=== PATIENT | male | born 1945 | race Caucasian/White ===

== ENCOUNTER 2016-07-23 21:11 | Outpatient (CLI) | payer MEDICARE, OTHER ==
[~2016-07-23 21:11] MED LIST: HYDR-3454 PO; PANT40TA2 PO
== END 2016-07-24 06:01 | disposition home or self-care (01) ==
LOC: SLEEP 21:11
PROVIDERS: ATTEND Nurse Practitioner Family
DX: G47.10 Hypersomnia, unspecified (principal); R06.83 Snoring
CPT/HCPCS: 95810

== ENCOUNTER 2020-10-09 05:28 | Outpatient (RCR) | payer MEDICARE, OTHER ==
[~2020-10-09] VITALS: Ht 175.3 cm; Wt 96.2 kg
[~2020-10-09 05:28] MED LIST changes: -HYDR-3454 PO; +HYDR-3455 PO; +METF-397 PO
== END 2020-10-09 09:18 | disposition home or self-care (01) ==
LOC: PREOP 05:28
PROVIDERS: ATTEND Internal Medicine
DX: Z01.812 Encounter for preprocedural laboratory examination (principal); Z12.11 Encounter for screening for malignant neoplasm of colon; K21.9 Gastro-esophageal reflux disease without esophagitis; Z20.822 Contact with and (suspected) exposure to COVID-19
CPT/HCPCS: 87635

== ENCOUNTER 2020-10-11 07:05 | Day surgery (SDC) | payer MEDICARE, OTHER ==
--- NOTE | 2020-10-01 11:44 | HISTORY AND PHYSICAL ---
DATE OF SERVICE: COLONOSCOPY HISTORY AND PHYSICAL DATE OF ADMISSION: . HISTORY OF PRESENT ILLNESS: The patient is a 75-year-old white male seen for followup of type 2 diabetes mellitus, either or not, previously had colonoscopy done over 10 years, so he is being set up for screening colonoscopy. He states that he has been taking metformin. He has had a little bit of diarrhea with it. I was concerned about this. He had noted no blood and had no diarrhea, previous. He has had no accidents and is not limiting him socially to a significant extent per his report. He is still not doing as well as he could with portion control or regular physical activity, but doing well otherwise. He has had no chest pain or shortness of breath. PHYSICAL EXAMINATION: GENERAL: Revealed a white male, who appeared to be in no acute distress. VITAL SIGNS: Blood pressure 130/80, weight was up 2.6 pounds to 216.6. HEENT: Unremarkable. Sclerae nonicteric. CHEST: Clear. CARDIOVASCULAR: Reveals a regular rate and rhythm without murmur, S3 or S4. ABDOMEN: Soft, supple without mass, organomegaly or tenderness. EXTREMITIES: Reveal no cyanosis, clubbing or edema. LABORATORY DATA: Blood tests were reviewed with the patient. His A1c level is down from 8.2% to 7.3% and glucose was down from a fasting level of 226 three months ago to 165. ASSESSMENT AND PLAN: 1. Improving blood sugar control, but not yet ideal. Discussed the importance of portion controlling especially carbohydrates as well as increasing physical activity. As the patient is having some diarrhea, we will not increase metformin as of yet, but discussed this on return and see what the patient could do with further lifestyle management considering significant improvement over the past three months. 2. The patient is set up for screening colonoscopy. Prep instructions were given and questions were answered. Follow up in four months with repeat BMP and an A1c level. Job ID: [id number] DocumentID: [id number] Dictated Date: 10/01/2020 10:42:07 Manager Food Safety Date: 10/01/2020 11:43:48 Dictated By: LUDA LONDONO MD
[2020-10-11] VITALS (9 sets, daily range): BP systolic 118–152; BP diastolic 72–97
[~2020-10-11] VITALS: Ht 173.3 cm; Wt 96.2 kg
[2020-10-11] MEDS ORDERED: LACTATED RINGERS 1,000 ML IV ONE (07:14)
[2020-10-11] MEDS ORDERED: LACTATED RINGERS 1,000 ML IV STA (07:19)
[2020-10-11] MEDS ORDERED: LIDOCAINE JELLY 2% 6 ML SYRINGE MM PRN (07:30)
[2020-10-11] MEDS ORDERED: proPOfol 200 MG/20 ML (DIPRIVAN) VIAL IV ONE ×2 (07:44→08:05)
[2020-10-11] MEDS ORDERED: MIDAZOLAM 2 MG/2 ML (VERSED) VIAL ONE (07:44)
[2020-10-11] MEDS ORDERED: LIDOCAINE JELLY 2% 6 ML SYRINGE ONE (07:49)
[2020-10-11] MEDS ORDERED: HURRICAINE EXT TUBE (BENZOCAINE) ONE (07:49)
--- NOTE | 2020-10-11 07:53 | Pre-Op Note & Conscious Sedat ---
Pre-Operative Progress Note H&P Reviewed The H&P was reviewed, patient examined and no changes noted. Date H&P Reviewed: Oct 11, 2020 Time H&P Reviewed: 07:53 Conscious Sedation Pre-Proced ASA Score 2 For ASA 3 and 4: Consider anesthesia and medical clearance. Also, for patients with a history of failed moderate sedation consider anesthesia. Airway Lungs Heart ASA score ASA 1: a normal healthy patient ASA 2: a patient with a mild systemic disease (mid diabetes, controlled hypertension, obesity ASA 3: a patient with a severe systemic disease that limits activity (angina, COPD, prior Myocardial infarction) ASA 4: a patient with an incapacitating disease that is a constant threat to life (CHF, renal failure) ASA 5: a moribund patient not expected to survive 24 hrs. (ruptured aneurysm) ASA 6: a declared brain- patient whose organs are being harvested. For emergent operations, add the letter E after the classification Mallampati Classification Grade 2 Sedation Plan Analgesia, Amnesia, Plan communicated to team members, Discussed options with patient/fam, Discussed risks with patient/fam The patient is an appropriate candidate to undergo the planned procedure, sedation, and anesthesia. The patient immediately re-assessed prior to indication. LUDA LONDONO MD Oct 11, 2020 07:53
[2020-10-11] MEDS ORDERED: HURRICAINE EXT TUBE (BENZOCAINE) XX ONE (08:30)
--- NOTE | 2020-10-11 10:59 | Anesthesia-General Post-Op ---
MAC Patient Condition Mental Status/LOC: Same as Preop Cardiovascular: Satisfactory Nausea/Vomiting: Absent Respiratory: Satisfactory Pain: Controlled Complications: Absent Post Op Complications Complications None Follow Up Care/Instructions Patient Instructions None needed. Anesthesiology Discharge Order Discharge Order Patient is doing well, no complaints, stable vital signs, no apparent adverse anesthesia problems. No complications reported per nursing. ERIC BAI CRNA Oct 11, 2020 10:59
--- NOTE | 2020-10-11 17:35 | OPERATIVE REPORT ---
DATE OF SERVICE: PANENDOSCOPY SUMMARY PRIMARY CARE PROVIDER: Luda Londono MD EGD was performed due to increasing reflux symptoms over the past several months. The patient was placed in the left lateral decubitus position. The endoscope was inserted in the oral cavity and under direct visualization, esophagus was intubated. Endoscope was passed down the esophagus through the stomach and second portion of the duodenum. Careful inspection was made as the endoscope was withdrawn. FINDINGS: The proximal and mid esophagus were unremarkable. Several shallow peptic-appearing ulcerations were noted in the distal esophagus involving no more than 20% of the circumference of the GE junction, the largest one extending about a 0.5 cm proximally, compatible with LA grade A erosive esophagitis. A small sliding hiatal hernia was noted. No evidence for stricture formation and no evidence for Frazier's to gross inspection was noted. Biopsies were obtained and submitted for histopathology. The cardia, fundus, antrum, pylorus, pyloric channel, duodenal bulb and second portion of duodenum were unremarkable. ASSESSMENT: As noted above, LA grade A erosive esophagitis changes were present without evidence for Frazier's. A small sliding hiatal hernia is noted. We discussed the importance of lifestyle change for this as well as his diabetes, portion control, increased physical activity, not eating or drinking 3 or 4 hours before bedtime. Continuing p.r.n. antacid therapy with further recommendations pending biopsy results. We then proceeded with colonoscopy. Prior to undergoing colonoscopy, digital rectal evaluation was performed. Prostate is mildly enlarged, anodular and nontender to digital inspection. No other abnormalities were noted on digital inspection of anal canal or distal rectal vault. The colonoscope was then inserted into the rectum and under direct visualization advanced to the cecum. The cecum was identified by identification of ileocecal valve and a cecal strap. Quality of prep was fair. FINDINGS: There were no evidence for internal or external hemorrhoids. Present in the distal rectum was a diminutive 4 mm sessile polyp, it was photographed and biopsied and ablated with no subsequent blood loss. The remainder of the rectum was unremarkable. Several small sigmoid diverticulum were present. No other sigmoid colonic abnormalities were appreciated. A diminutive polyp was noted in the distal descending colon. It was photographed and biopsied and ablated. Two adjacent polyps were noted in the proximal transverse colon, which were biopsied and ablated, scarp the two adjacent, but down 2 polyps were noted in the transverse colon, one in the proximal and other in the distal, which were both biopsied, ablated after photographic documentation. No blood loss was noted. The splenic flexure, ascending colon and cecum was unremarkable. ASSESSMENT: Four small polyps were removed today as noted above. Several small sigmoid diverticula were present without evidence for diverticulitis. Digital evaluation of the prostate was compatible with mild BPH. We will await histopathology report before making recommendation for future surveillance colonoscopy. Job ID: [id number] DocumentID: [id number] Dictated Date: 10/11/2020 09:35:33 Oil Winterizer Date: 10/11/2020 17:35:08 Dictated By: LUDA LONDONO MD
== END 2020-10-11 09:40 | disposition home or self-care (01) ==
LOC: ENDO 07:05
PROVIDERS: ATTEND Internal Medicine
DX: D12.3 Benign neoplasm of transverse colon (principal); D12.4 Benign neoplasm of descending colon; K62.1 Rectal polyp; K21.00 Gastro-esophageal reflux disease with esophagitis, without bleeding; K22.70 Barrett's esophagus without dysplasia; K44.9 Diaphragmatic hernia without obstruction or gangrene; K57.30 Diverticulosis of large intestine without perforation or abscess without bleeding; E11.9 Type 2 diabetes mellitus without complications; Z79.84 Long term (current) use of oral hypoglycemic drugs
CPT/HCPCS: 82947; 88305

== ENCOUNTER 2020-12-25 05:38 | Outpatient (CLI) | payer MEDICARE, OTHER ==
[~2020-12-25] VITALS: Ht 175.3 cm; Wt 96.6 kg
[2020-12-25] MEDS ORDERED: METF-845 PO (16:26)
== END 2020-12-25 16:30 | disposition home or self-care (01) ==
LOC: PREOP 05:38
PROVIDERS: ATTEND Surgery
DX: Z01.818 Encounter for other preprocedural examination (principal)

== ENCOUNTER 2021-01-01 07:11 | Day surgery (SDC) | payer MEDICARE, OTHER ==
[~2021-01-01] VITALS: Ht 175 cm; Wt 96.6 kg
[2021-01-01] VITALS (11 sets, daily range): BP systolic 88–149; BP diastolic 44–98
[~2021-01-01 07:11] MED LIST changes: +METF-845 PO
[2021-01-01] MEDS ORDERED: LIDOCAINE/EPI 1%-1:100,000 (XYLOCAINE) 20ML ONE (07:17)
[2021-01-01] MEDS ORDERED: CLINDAMYCIN 600 MG/50 ML IVPB 50 ML IV ONE (07:30)
[2021-01-01 07:42] LABS: BASOPHILS % (AUTO) 0 % (0-10); EOSINOPHILS # (AUTO) 0.2 10^3/uL (0.0-0.3); EOSINOPHILS % (AUTO) 3 % (0-10); HEMATOCRIT 46 % (40-54); HEMOGLOBIN 15.5 g/dL (13.3-17.7); LYMPHOCYTES # (AUTO) 1.4 10^3/uL (1.0-4.0); LYMPHOCYTES % (AUTO) 27 % (12-44); MEAN CORPUSCULAR HEMOGLOBIN 31 pg (25-34); MEAN CORPUSCULAR HGB CONC 34 g/dL (32-36); MEAN CORPUSCULAR VOLUME 91 fL (80-99); MEAN PLATELET VOLUME 10.6 fL (9.0-12.2); MONOCYTES # (AUTO) 0.6 10^3/uL (0.0-1.0); MONOCYTES % (AUTO) 11 % (0-12); NEUTROPHILS # (AUTO) 3.1 10^3/uL (1.8-7.8); NEUTROPHILS % (AUTO) 59 % (42-75); PLATELET COUNT 216 10^3/uL (130-400); WHITE BLOOD COUNT 5.2 10^3/uL (4.3-11.0)
[2021-01-01] MEDS: LACTATED RINGERS 1,000 ML IV PRN ×2 (07:49→10:47)
--- NOTE | 2021-01-01 08:15 | Progress Note-Pre Operative ---
Pre-Operative Progress Note H&P Reviewed The H&P was reviewed, patient examined and no changes noted. Time Seen by Provider: 08:10 Date H&P Reviewed: Jan 01, 2021 Time H&P Reviewed: 08:10 Pre-Operative Diagnosis: Left inguinal hernia, site marked ALANNAH DEL ROSARIO DO Jan 01, 2021 08:15
[2021-01-01] MEDS ORDERED: MIDAZOLAM 2 MG/2 ML (VERSED) VIAL ONE (08:24)
[2021-01-01] MEDS ORDERED: fentaNYL INJ 100 MCG/2 ML AMP ONE ×2 (08:24→10:46)
[2021-01-01] MEDS ORDERED: GLYCOPYRROLATE 0.2 MG/ML (ROBINUL) 2 ML VIAL ONE (09:33)
[2021-01-01] MEDS ORDERED: ROCURONIUM 10 MG/ML 5 ML SYRINGE IV ONE ×2 (09:33→10:21)
[2021-01-01] MEDS ORDERED: PHENYLEPHRINE 100 MCG/ML 10 ML (ANESTHESIA) SYR ONE (09:33)
[2021-01-01] MEDS ORDERED: LIDOCAINE PF 2% 5 ML (XYLOCAINE) VIAL ONE (09:33)
[2021-01-01] MEDS ORDERED: ONDANSETRON 4 MG/2 ML (SDV) Z0FRAN ONE (09:33)
[2021-01-01] MEDS ORDERED: proPOfol 200 MG/20 ML (DIPRIVAN) VIAL IV ONE (09:33)
[2021-01-01] MEDS ORDERED: NEOSTIGMINE 3 MG/3 ML VIAL ONE (09:33)
[2021-01-01] MEDS ORDERED: SEVOFLURANE (ULTANE) 15 ML INHAL SOLN ONE (10:49)
--- NOTE | 2021-01-01 10:59 | Progress Note-Post Operative ---
Post-Operative Progess Note Surgeon (s)/Rail Equipment Operator (s) Surgeon ALANNAH DEL ROSARIO DO Rail Equipment Operator: Adan Pre-Operative Diagnosis Left inguinal hernia, site marked Post-Operative Diagnosis Incarcerated Left inguinal hernia Procedure & Operative Findings Date of Procedure 01/01/21 Procedure Performed/Findings Laparoscopic Left Inguinal Herniarraphy with mesh placement - Robotic assisted After informed consent was obtained, the patient was brought to the operating room and placed on the operating table in a supine position. He was sterilely prepped and draped in a normal fashion. Local lidocaine was used to infiltrate the skin above the umbilicus. I made an incision with #11 blade, carried down to the skin into subcutaneous tissue and then deepened down the subcutaneous tissue with Bovie electrocautery down to the fascia. Fascia was incised with Bovie electrocautery and bluntly entered the abdomen, swept a finger around, placed 0 Vicryl [id number] suture and placed limited trocar port under direct visualization. Created pneumoperitoneum, able to visualize the hernia and took a picture of this and then placed two 8 mm ports about 10 cm on either side of the midline port using a local lidocaine, 11 blade for stab incision and then advanced the robotic port under direct visualization. Once this was in, I then placed the patient in Trendelenburg and then placed the working instruments, the fenestrated bipolar and the scissors. Looked on the right side and saw no signs of inguinal hernia. On the left there was a large indirect defect with omentum and bowel in the the hernia defect. I had to first remove the incarcerated bowel by pulling on the insided and having Dr. Arellano push from the outside. I used cautery to take down some of the adhesions and then could see directly into large defect and pictures were taken. Next, I came across the peritoneum approximately 8 cm away from the hernia defect, going across laterally starting lateral about 17cm and cutting toward the median umbilical ligament. I then carefully dissected the visceral peritoneum away and down and then in the midline, went through the parietal side and dissected down to the pubic tubercle, dissecting this down carefully pushing the peritoneum away, I was able to then visualize the pubic tubercle and Kai's ligament. I went 2 cm posterior and at this point, we then had a critical view of the dissection, able to dissect 2 cm across the midline to the right side, 2 cm posterior to the Kai's ligament, able to then parietalize the vas deferens and spermatic vessels right at the groove between Kai's and iliac vein and able to dissect, make sure there was no peritoneum between those two, able to see the indirect hernia space, took a picture of this, looked at the femoral space (no hernia seen). Then I carefully teased out the hernia sac and could visualize the indirect hernia space. Next I looked on the cord and cord structures. There was a small cord lipoma that I was able to reduce. I could clearly see the inguinal canal and the indirect space. Next I carried the posterior lateral dissection all the way out and then placed a 12 x 17 Midwieght Bard 3DMax mesh. It laid in nicely, covered the hernia defect and the rest of the area. It was above the peritoneum, sutured it at the pubic tubercle with a 3-0 Vicryl suture and tied this off. This appeared to lay in very nicely. I then brought down the pneumoperitoneum to about 8 mmHg and then started closing the peritoneum. Started medially and used a 2-0 V-lock barbed suture to start a running stitch to close the peritoneum. This was closed nicely, took a picture of the closure at this point, then removed both needles had switched to a suture fuel truck driver from the scissors. The patient was then placed back supine, removed all ports under direct visualization, allowed pneumoperitoneum to escape and then closed the supraumbilical incision, closing the fascia with 0 Vicryl suture previously placed. Copiously irrigated all incisions and then closed the two small 8 mm incisions with two interrupted 4-0 undyed Monocryl subcuticular stitches and closed the supraumbilical incision with three interrupted undyed Monocryl subcuticular stitch. Area was cleaned and dried. Dermabond was placed. The patient tolerated the procedure. The sponge, instrument and needle counts were correct at the end of the case. Dr. Arellano assisted during this surgery by making incisions, closing incisions, helping to identify anatomy and passing/retrieving suture and needles. Anesthesia Type GET Estimated Blood Loss Estimated blood loss (mL): less than 5ml Specimens/Packing Specimens Removed none ALANNAH DEL ROSARIO DO Jan 01, 2021 10:59
[2021-01-01] MEDS ORDERED: ACHD5005 PO (11:02)
--- NOTE | 2021-01-01 11:03 | Discharge Inst-Surgical ---
Discharge Inst-Surgical Depart Medication/Instructions New, Converted or Re-Newed RX: Transmitted to Pharmacy Patient Instructions Follow up Appt: Make appointment for 1 week. [phone] Instructions: No lifting greater than 20 pounds. No strenuous activity. May shower in 24 hours, no tub bath or soaking. Use incentive spirometer at home as directed. No Smoking Skin/Wound Care: May remove bandages in am. You need to leave the Dermabond on incision it will fall off on it's own. Symptoms to Report: Appetite Changes, Extremity Discoloration, Numbness/Tingling, Swelling Increased, Bleeding Excessive, Eyesight Changes, Pain Increased, Urine Color Change, Constipation(Persistent), Fever over 101 degree F, Pain/Pressure in chest, Urinating Difficulty, Cough Up/Vomit Blood, Heart Beat Irreg/Pounding, Pain/Pressure in jaw, Cramps in feet or legs, Lightheadedness, Pain/Pressure in shoulder, Diarrhea(Persistent), Memory Changes Suddenly, Questions/Concerns, Weight gain consecutive days, Dizziness/Fainting, Nausea/Vomiting, Shortness of Breath, Weight gain over 2 pounds If questions or concerns contact your physician Or seek help at emergency department. Activity Activity as Tolerated: Yes Activity Instructions: Avoid Stress to Incision Driving Instructions: No Driving/Refer to Dr. Garcia Discharge Diet: No Restrictions Diet After 24 Hours: Clear Liquid if Nauseous If Any Problems/Questions/Issu: Contact Your Physician, Go to Emergency Room Skin/Wound Care Infection Signs and Symptoms: Increased Redness, Foul Odor of Wound, Increased Drainage, Skin Itchy or Has a Rash, Increased Swelling, Temperature Above 101 F Wound Care Comment: heating pad to shoulder or neck tonight for pain Bathing Instructions: Shower Stitches/[place]/Dermabond Dis: Dermabond Ice Pack: Ice On and Off Site ALANNAH DEL ROSARIO DO Jan 01, 2021 11:03
--- NOTE | 2021-01-01 14:23 | Anesthesia-General Post-Op ---
General Patient Condition Mental Status/LOC: Same as Preop Cardiovascular: Satisfactory Nausea/Vomiting: Absent Respiratory: Satisfactory Pain: Controlled Complications: Absent Post Op Complications Complications None Follow Up Care/Instructions Patient Instructions None needed. Anesthesia/Patient Condition Patient Condition Patient is doing well, no complaints, stable vital signs, no apparent adverse anesthesia problems. No complications reported per nursing. ERIC BAI CRNA Jan 01, 2021 14:23
[2021-01-01] MEDS ORDERED: HYDROcodone/APAP 5 MG/325 MG (LORTAB) TAB ONE (14:36)
[2021-01-01] MEDS ORDERED: HYDROcodone/APAP 5 MG/325 MG (LORTAB) TAB PO ONE (14:45)
[2021-01-01] MEDS ORDERED: TMSL.4C PO (22:34)
== END 2021-01-01 14:45 | disposition home or self-care (01) ==
LOC: SDC 07:11
PROVIDERS: ATTEND Surgery
DX: K40.30 Unilateral inguinal hernia, with obstruction, without gangrene, not specified as recurrent (principal); N99.89 Other postprocedural complications and disorders of genitourinary system; K66.0 Peritoneal adhesions (postprocedural) (postinfection); E11.9 Type 2 diabetes mellitus without complications; J30.9 Allergic rhinitis, unspecified; K59.00 Constipation, unspecified; Z79.84 Long term (current) use of oral hypoglycemic drugs; Z90.49 Acquired absence of other specified parts of digestive tract; Z79.899 Other long term (current) drug therapy; Z80.0 Family history of malignant neoplasm of digestive organs
CPT/HCPCS: 49650; 51702; 80053; 81000; 82947; 85007; 85025; 85027; 87081; 93041; 99284; C1781; 36415

== ENCOUNTER 2021-01-01 20:33 | Emergency (ER) | payer MEDICARE, OTHER ==
[~2021-01-01] VITALS: Ht 175.2 cm; Wt 96.6 kg
[~2021-01-01 20:33] MED LIST changes: +ACHD5005 PO
[2021-01-01 21:53] LABS: BASOPHILS % (AUTO) 0 % (0-10); EOSINOPHILS % (AUTO) 0 % (0-10); HEMATOCRIT 43 % (40-54); HEMOGLOBIN 14.7 g/dL (13.3-17.7); LYMPHOCYTES # (AUTO) 0.6 10^3/uL (1.0-4.0); LYMPHOCYTES % (AUTO) 6 % (12-44); MEAN CORPUSCULAR HEMOGLOBIN 31 pg (25-34); MEAN CORPUSCULAR HGB CONC 35 g/dL (32-36); MEAN CORPUSCULAR VOLUME 91 fL (80-99); MEAN PLATELET VOLUME 10.7 fL (9.0-12.2); MONOCYTES # (AUTO) 0.6 10^3/uL (0.0-1.0); MONOCYTES % (AUTO) 6 % (0-12); NEUTROPHILS # (AUTO) 9.6 10^3/uL (1.8-7.8); NEUTROPHILS % (AUTO) 88 % (42-75); PLATELET COUNT 189 10^3/uL (130-400); WHITE BLOOD COUNT 10.9 10^3/uL (4.3-11.0)
[2021-01-01 21:54] LABS: BILIRUBIN,URINE NEGATIVE (NEGATIVE); CLARITY,URINE CLEAR; COLOR,URINE YELLOW; GLUCOSE, URINE (UA) TRACE (NEGATIVE); KETONES,URINE NEGATIVE (NEGATIVE); LEUKOCYTE ESTERASE ,URINE NEGATIVE (NEGATIVE); NITRITE,URINE NEGATIVE (NEGATIVE); PH,URINE 5.5 (5-9); PROTEIN,URINE NEGATIVE (NEGATIVE)
[2021-01-01 21:59] LABS: BACTERIA,URINE TRACE /HPF; WBC,URINE 0-2 /HPF
[2021-01-01] MEDS ORDERED: TAMSULOSIN 0.4 MG (FLOMAX) CAP PO SCH (22:00)
[2021-01-01 22:06] LABS: ALBUMIN 3.9 GM/DL (3.2-4.5)
[2021-01-01 22:08] LABS: CALCIUM 8.7 MG/DL (8.5-10.1)
[2021-01-01 22:09] LABS: TOTAL PROTEIN 7.4 GM/DL (6.4-8.2)
[2021-01-01 22:11] LABS: BILIRUBIN,TOTAL 1.2 MG/DL (0.1-1.0)
[2021-01-01 22:12] LABS: CREATININE SERUM 1.29 MG/DL (0.60-1.30)
[2021-01-01] MEDS ORDERED: TMSL.4C PO (22:34)
--- NOTE | 2021-01-01 22:34 | ED GU-Male ---
General Chief Complaint: - Urinary Stated Complaint: PROBLEM URINATING, GROIN PAIN Allergies and Home Medications Allergies Coded Allergies: Penicillins (Verified Allergy, Unknown, HIVES, 05/31/15) Home Medications Hydrocodone Bit/Acetaminophen 1 Tab Tab, 1 TAB PO Q8H PRN for PAIN-MODERATE (5- 7) Prescribed by: ALANNAH DEL ROSARIO on 01/01/21 1102 Metformin HCl 500 Mg [id number], 1,000 MG PO HS, (Reported) Tamsulosin HCl 0.4 Mg Cap, 0.4 MG PO DAILY Prescribed by: KAYLYNN ROJAS on 01/01/21 2234 Past Mngyztv-Pjrrmo-Qzpafl Hx Seasonal Allergies Seasonal Allergies: No Past Medical History Surgeries: Yes (Open Cholecystectomy, Lap Rayray, ventral hernia) Gallbladder Respiratory: No Cardiac: No Neurological: No Reproductive Disorders: No Sexually Transmitted Disease: No HIV/AIDS: No Genitourinary: Yes Prostate Problems Gastrointestinal: Yes (ing hernia) Gastroesophageal Reflux Musculoskeletal: No Endocrine: Yes Diabetes, Non-Insulin dep HEENT: No Cancer: No Psychosocial: No Integumentary: No Blood Disorders: No Physical Exam Vital Signs Capillary Refill : Height, Weight, BMI Height: 5'9.00" Weight: 210lbs. 0.0oz. 95.292648us; 31.54 BMI Method: Progress/Results/Core Measures Suspected Sepsis SIRS Temperature: Pulse: Respiratory Rate: Laboratory Tests 01/01/21 21:30: White Blood Count 10.9 Blood Pressure / Mean: Laboratory Tests 01/01/21 21:30: Creatinine 1.29, Platelet Count 189, Total Bilirubin 1.2H Results/Orders Lab Results Laboratory Tests Test 01/01/21 21:30 Range/Units White Blood Count 10.9 4.3-11.0 10^3/uL Red Blood Count 4.69 4.30-5.52 10^6/uL Hemoglobin 14.7 13.3-17.7 g/dL Hematocrit 43 40-54 % Mean Corpuscular Volume 91 80-99 fL Mean Corpuscular Hemoglobin 31 25-34 pg Mean Corpuscular Hemoglobin Concent 35 32-36 g/dL Red Cell Distribution Width 13.0 10.0-14.5 % Platelet Count 189 130-400 10^3/uL Mean Platelet Volume 10.7 9.0-12.2 fL Immature Granulocyte % (Auto) 0 % Neutrophils (%) (Auto) 88 H 42-75 % Lymphocytes (%) (Auto) 6 L 12-44 % Monocytes (%) (Auto) 6 0-12 % Eosinophils (%) (Auto) 0 0-10 % Basophils (%) (Auto) 0 0-10 % Neutrophils # (Auto) 9.6 H 1.8-7.8 10^3/uL Lymphocytes # (Auto) 0.6 L 1.0-4.0 10^3/uL Monocytes # (Auto) 0.6 0.0-1.0 10^3/uL Eosinophils # (Auto) 0.0 0.0-0.3 10^3/uL Basophils # (Auto) 0.0 0.0-0.1 10^3/uL Immature Granulocyte # (Auto) 0.0 0.0-0.1 10^3/uL Urine Color YELLOW Urine Clarity CLEAR Urine pH 5.5 5-9 Urine Specific [place] 1.015 L 1.016-1.022 Urine Protein NEGATIVE NEGATIVE Urine Glucose (UA) TRACE H NEGATIVE Urine Ketones NEGATIVE NEGATIVE Urine Nitrite NEGATIVE NEGATIVE Urine Bilirubin NEGATIVE NEGATIVE Urine Urobilinogen 0.2 < = 1.0 MG/DL Urine Leukocyte Esterase NEGATIVE NEGATIVE Urine RBC (Auto) 2+ H NEGATIVE Urine RBC 5-10 H /HPF Urine WBC 0-2 /HPF Urine Crystals NONE /LPF Urine Bacteria TRACE /HPF Urine Casts NONE /LPF Urine Mucus NEGATIVE /LPF Urine Culture Indicated NO Sodium Level 136 135-145 MMOL/L Potassium Level 4.0 3.6-5.0 MMOL/L Chloride Level 106 98-107 MMOL/L Carbon Dioxide Level 17 L 21-32 MMOL/L Anion Gap 13 5-14 MMOL/L Blood Urea Nitrogen 16 7-18 MG/DL Creatinine 1.29 0.60-1.30 MG/DL Estimat Glomerular Filtration Rate 55 BUN/Creatinine Ratio 12 Glucose Level 206 H 70-105 MG/DL Calcium Level 8.7 8.5-10.1 MG/DL Corrected Calcium 8.8 8.5-10.1 MG/DL Total Bilirubin 1.2 H 0.1-1.0 MG/DL Aspartate Amino Transf (AST/SGOT) 41 H 5-34 U/L Alanine Aminotransferase (ALT/SGPT) 77 H 0-55 U/L Alkaline Phosphatase 67 40-136 U/L Total Protein 7.4 6.4-8.2 GM/DL Albumin 3.9 3.2-4.5 GM/DL My Orders Orders - KAYLYNN ROJAS DO Ed Iv/Invasive Line Start (01/01/21 21:23) Monitor-Rhythm Ecg Trace Only (01/01/21 21:23) Cbc With Automated Diff (01/01/21:23) Comprehensive Metabolic Panel (01/01/21 21:23) Ua Culture If Indicated (01/01/21 21:23) Catheter(Urinary) Insert & Ass 03,15 (01/01/21 21:28) Tamsulosin Capsule (Flomax Capsule) (01/01/21 22:00) Manual Differential (01/01/21 21:30) Vital Signs/I&O Capillary Refill : Departure Impression Primary Impression: Postoperative urinary retention Disposition: 01 HOME, SELF-CARE Condition: Improved Departure-Patient Inst. Decision time for Depature: 22:30 Referrals: LUDA LONDONO MD (PCP/Family) Primary Care Physician ALANNAH DEL ROSARIO ELIAS A MD Patient Instructions: Urinary Retention (DC), How to Care for Your Quiros Catheter, Male Add. Discharge Instructions: CONTINUE ALL POST OP INSTRUCTIONS CALL DR. DEL ROSARIO'S OFFICE IN THE MORNING FOR FURTHER CARE, YOU MAY ALSO NEED TO CONTACT DR. TORREZ, UROLOGIST, FOR FURTHER CARE--DISCUSS WITH DR. DEL ROSARIO ABOUT NEED FOR FOLLOW UP WITH DR. TORREZ All discharge instructions reviewed with patient and/or family. Voiced understanding. Scripts Tamsulosin HCl (Flomax) 0.4 Mg Cap 0.4 MG PO DAILY, #10 CAP Prov: KAYLYNN ROJAS DO 01/01/21 KAYLYNN ROJAS DO Jan 01, 2021 22:34
[2021-01-01 22:40] LABS: EOSINOPHILS % (MANUAL) 1 %; LYMPHOCYTES % (MANUAL) 9 %; MONOCYTES % (MANUAL) 8 %; NEUTROPHILS % (MANUAL) 82 %; RBC MORPH NORMAL
[2021-01-01 23:02] VITALS: BP 135/85
== END 2021-01-01 23:09 | disposition home or self-care (01) ==
LOC: EDUNIT# 20:33 → ER 20:36
DX: N99.89 Other postprocedural complications and disorders of genitourinary system (principal); E11.9 Type 2 diabetes mellitus without complications; Z79.84 Long term (current) use of oral hypoglycemic drugs
CPT/HCPCS: 36415; 51702; 80053; 81000; 85007; 85027; 93041